=== PATIENT | male | born 1945 | race Caucasian/White ===

== ENCOUNTER → 2017-11-09 | Day surgery (SDC) | payer MEDICARE ==
--- NOTE | 2017-11-05 10:30 | RAD REPORT ---
EXAM DESCRIPTION: RAD - Chest Pa And Lat (2 Views) - 11/05/2017 10:21 am CLINICAL HISTORY: Coronary artery disease Chest pain. COMPARISON: CHEST PA AND LAT 2 VIEW dated 12/21/2013; Ct Low Dose Chest Screening dated 04/26/2017 FINDINGS: The lungs are emphysematous with linear scarring seen in the left lateral lower lobe. The heart is mildly prominent in size. No displaced fractures. IMPRESSION: COPD.
[2017-11-05 10:59] LABS: Absolute Lymphocytes (CBC) 1.3 K/uL (0.7-4.9); Absolute Monocytes 0.8 K/uL (0.1-1.3); Absolute Neutrophil 5.1 K/uL (1.8-8.0); Basophils % 1.3 % (0-1.3); Eosinophils % 2.9 % (0-4.4); Hematocrit 45.7 % (39.6-49.0); Lymphocytes % 17.8 % (15.3-44.8); MCH 32.3 pg (27.0-35.0); MCV 94.2 fL (80-100); MPV 8.5 fL (7.6-11.3); Monocytes % 10.2 % (3.3-12.3); RBC Red Blood Cell Count 4.85 M/uL (4.33-5.43)
[2017-11-05 11:03] LABS: Protime INR 1.06
[2017-11-05 11:05] LABS: Potassium 4.2 mmol/L (3.5-5.1)
--- NOTE | 2017-11-05 15:02 | EKG ---
Test Date: 2017-11-05 Test Time: 10:24:50 Fire Hydrant Mechanic: BRANDON MEASUREMENT RESULTS: Intervals: Rate: 64 DC: 186 QRSD: 100 QT: 450 QTc: 464 [place]: P: 22 DC: 186 QRS: -30 T: 27 INTERPRETIVE STATEMENTS: Normal sinus rhythm Left axis deviation Abnormal ECG Compared to ECG 11/30/2013 10:34:09 Left-axis deviation now present Electronically Signed On 11-05-17 15:01:47 CDT by Emmett Luciano
[~2017-11-09] MED LIST: FENTANYL CITR 100 MCG/2 ML ONE; HEPA 1000U/500MLS 1,000 UNIT/500 ML BAG IV ONE; LIDOCAINE 1% MPF 5 ML VIAL ONE; MIDAZOLAM HCL 2 MG/2 ML INJ ONE; NA CHLORIDE 0.9% 0 ML ONE; NA CHLORIDE 0.9% 500 ML ONE
[2017-11-09 09:50] VITALS: TEMP 97
[2017-11-09 12:14] VITALS: BP 141/65; O2SAT 94
--- NOTE | 2017-11-09 20:04 | OP ---
Surgeon: aCr Lomax MD Survey Researcher: Pearl Colón. Admitted to my service on 11/09/2017 as an outpatient for a heart catheterization. Procedures: Left heart catheterization. Selective coronary arteriogram. Indication: Coronary artery disease and unstable angina. Procedure In Detail: The patient was brought into the prosthetic lab technician as an outpatient, prepped and draped in the routine sterile fashion. He was given 2 mg of Versed for IV sedation. A 6-Portuguese sheath was introduced in the right common femoral artery. Angio-Seal was used to close the case. Coronary mirta ography using 6-Portuguese catheters. Jens showed a proximal patent LAD stent, proximal patent RCA st ent and distal patent RCA stent, diffuse plaquing in the distal RCA. Normal circumflex. No complica tion. Blood Loss: 5 cc. Total Conscious Sedation: 30 minutes. Postoperative Diagnoses: Moderate coronary artery disease. Patent right coronary artery and left an terior descending stent. Plan: Medical therapy. HEIDI/CHEYANNE Voice ID: [id number] Report ID: [id number]
== END ==
LOC: CCL 07:25
DX: I25.110 Atherosclerotic heart disease of native coronary artery with unstable angina pectoris (principal); I10 Essential (primary) hypertension; I48.91 Unspecified atrial fibrillation; E78.6 Lipoprotein deficiency; F17.210 Nicotine dependence, cigarettes, uncomplicated; Z95.5 Presence of coronary angioplasty implant and graft
CPT/HCPCS: 36415; 71046; 80048; 85025; 85610; 85730; 93005; 93454; C1760; C1893; J2250; J3010

== ENCOUNTER 2020-07-30 06:25 | Day surgery (SDC) | payer MEDICARE, OTHER ==
[2020-07-29 14:10] LABS: Absolute Lymphocytes (CBC) 1.5 K/uL (0.7-4.9); Basophils % 0.9 % (0-1.3); Hematocrit 50.6 % (39.6-49.0); Lymphocytes % 16.4 % (15.3-44.8); MPV 9.9 fL (7.6-11.3); RBC Red Blood Cell Count 5.38 M/uL (4.33-5.43)
[2020-07-29 16:02] LABS: Potassium 4.7 mmol/L (3.5-5.1)
[2020-07-29 16:07] LABS: Protime INR 1.98
[2020-07-30 07:09] VITALS: TEMP 96.6
[2020-07-30] MEDS ORDERED: NA CHLORIDE 0.9% 500 ML ONE (07:13)
[2020-07-30] MEDS ORDERED: MIDAZOLAM HCL 10 ML ONE (07:39)
[2020-07-30] MEDS ORDERED: ATROPINE SULF 1 MG/10 ML SYR IV ONE (07:40)
[2020-07-30] MEDS ORDERED: FLUMAZENIL 0.1 MG/ML (5 mL VIAL) IV ONE (07:40)
[2020-07-30 09:21] VITALS: BP 123/68; O2SAT 98
--- NOTE | 2020-07-31 16:32 | EKG ---
Test Date: 2020-07-30 Test Time: 06:48:06 Sys Dir: KILEY/Marjan MEASUREMENT RESULTS: Intervals: Rate: 74 OR: 248 QRSD: 102 QT: 446 QTc: 495 [place]: P: 48 OR: 248 QRS: -41 T: 4 INTERPRETIVE STATEMENTS: Sinus rhythm with 1st degree AV block Possible Left atrial enlargement Left axis deviation Inferior infarct, age undetermined Abnormal ECG Electronically Signed On 07-31-20 16:30:00 CDT by Car Lomax
--- NOTE | 2020-07-31 16:32 | EKG ---
Test Date: 2020-07-30 Test Time: 06:47:08 Manifold Operator: KILEY/Marjan MEASUREMENT RESULTS: Intervals: Rate: 74 MT: 208 QRSD: 100 QT: 446 QTc: 495 [place]: P: 43 MT: 208 QRS: -43 T: 2 INTERPRETIVE STATEMENTS: Normal sinus rhythm Possible Left atrial enlargement Left axis deviation Inferior infarct, age undetermined Abnormal ECG Compared to ECG 11/05/2017 10:24:50 Myocardial infarct finding now present Electronically Signed On 07-31-20 16:30:01 CDT by Car Lomax
--- NOTE | 2020-07-31 23:11 | OP ---
Date of Procedure: 07/30/2020 Surgeon: Car Lomax MD Director Occupational: Jackie Dyer. Procedure: Direct current cardioversion. Indication: Recurrent atrial fibrillation on flecainide and Xarelto. Ms. Sanches is 74, presented wit h history of atrial fibrillation, controlled in the past on flecainide, went back into atrial fibrill ation. Flecainide dose was increased. He continued to be in atrial fibrillation on Xarelto, symptom atic with it with fatigue and shortness of breath, brought to the crime laboratory analyst as an outpatient on 2020. He 7 mg of Versed IV push x1 dose. He received 1 shock of 100 joules and he converted to sinu s rhythm. There were no complications or blood loss. Final Diagnosis: Successful cardioversion from atrial fibrillation to sinus rhythm. Continue his flecainide and Xarelto. He can go home when he wakes up. See me in the office in 2 wee ks. Anesthesia: Total conscious sedation was 30 minutes. HEIDI/CHEYANNE Voice ID: [id number] Report ID: [id number]
== END 2020-07-30 09:15 | disposition home or self-care (01) ==
LOC: CCL 06:25
DX: I48.0 Paroxysmal atrial fibrillation (principal); I48.92 Unspecified atrial flutter; I10 Essential (primary) hypertension; E78.2 Mixed hyperlipidemia; I25.10 Atherosclerotic heart disease of native coronary artery without angina pectoris; I70.213 Atherosclerosis of native arteries of extremities with intermittent claudication, bilateral legs; M47.892 Other spondylosis, cervical region; G62.9 Polyneuropathy, unspecified; R09.89 Other specified symptoms and signs involving the circulatory and respiratory systems; E66.9 Obesity, unspecified; Z68.36 Body mass index [BMI] 36.0-36.9, adult; Z79.01 Long term (current) use of anticoagulants; Z87.891 Personal history of nicotine dependence
CPT/HCPCS: 93005 ×2; 85025; 80048; 36415; 85610; 85730; 92960; J2250; J7040

== ENCOUNTER 2020-09-30 12:58 | Inpatient (IN) | payer OTHER ==
[2020-09-30 14:48] LABS: Absolute Lymphocytes (CBC) 0.9 K/uL (0.7-4.9); Basophils % 0.8 % (0-1.3); Lymphocytes % 6.9 % (15.3-44.8); MPV 8.1 fL (7.6-11.3); RBC Red Blood Cell Count 4.81 M/uL (4.33-5.43)
[2020-09-30 15:00] LABS: Protime INR 1.52
[2020-09-30 15:10] LABS: ALT/SGPT 17 U/L (12-78); AST/SGOT 9 U/L (15-37); Albumin 3.6 g/dL (3.4-5.0); Alkaline Phosphatase 97 U/L (45-117); BUN Blood Urea Nitrogen 33 mg/dL (7-18); Bicarbonate 20 mmol/L (21-32); Bilirubin Direct 0.2 mg/dL (0-0.2); Bilirubin Total 0.8 mg/dL (0.2-1.0); Glucose Level 145 mg/dL (74-106); Magnesium 1.8 mg/dL (1.8-2.4); NT PRO-BNP 614 pg/mL (<450); Potassium 4.2 mmol/L (3.5-5.1); Protein, Total 7.3 g/dL (6.4-8.2); Sodium Level 136 mmol/L (136-145); Troponin (Emerg Dept Use Only) < 0.02 ng/mL (0.0-0.045)
[2020-09-30] MEDS ORDERED: NA CHLORIDE 0.9% 500 ML ONE (15:56)
[2020-09-30] MEDS ORDERED: FENTANYL CITR 100 MCG/2 ML ONE ×2 (16:18→20:51)
[2020-09-30 16:52] LABS: SARS-COV-2 RT PCR NEGATIVE (NEGATIVE)
[2020-09-30] MEDS ORDERED: DIAZEPAM 10 MG/2 ML INJ SYRINGE ONE (17:14)
--- NOTE | 2020-09-30 17:40 | EDPHYS ---
Physician Documentation [facility] Name: Louisa Sanches Age: 74 yrs Sex: Male : 1945 Arrival Date: 09/30/2020 Time: 12:59 Bed 20 Private MD: ED Physician Bridger Brock HPI: 09/30 16:56 This 74 yrs old Male presents to ER via Ambulatory with complaints of Chest jr8 Pain. 16:56 This is a 74-year-old gentleman that started with right-sided back pain chest pain and jr8 side pain. Stated that is worse with breathing. Denies recent trauma. Severity of symptoms: At their worst the symptoms were moderate in the emergency department the symptoms are unchanged. The patient has not experienced similar symptoms in the past. The patient has not recently seen a physician. Historical: - Allergies: 14:19 No Known Allergies; kg - Home Meds: 14:20 atorvastatin 40 mg Oral tab [Active]; Belsomra 15 mg oral tab 1 tab daily [Active]; kg pantoprazole 20 mg Oral TbEC [Active]; Xarelto 20 mg oral tab 1 tab once daily [Active]; montelukast 10 mg Oral tab 1 tab once daily [Active]; cyclobenzaprine 10 mg Oral tab 1 tab once daily [Active]; flecainide 150 mg Oral tab 1 tab every 12 hours [Active]; metoprolol tartrate 100 mg Oral tab 1 tab once daily [Active]; tramadol 50 mg Oral TbDi 50 mg [Active]; albuterol sulfate Inhl [Active]; spironolactone 25 mg Oral tab 1 tab once daily [Active]; Fish Oil 1,000 mg oral cap daily [Active]; - PMHx: 14:20 A-fib; COPD; High Cholesterol; Hypertension; kg - PSHx: 14:20 Cardiac stents; Cholecystectomy; kg - Immunization history:: Adult Immunizations up to date, Client reports receiving the 2nd dose of the Covid vaccine, Date received: April 29, 2020 [employer] Client reports receiving the 1st dose of the Covid vaccine, April 08, 2020 [employer]. - Social history:: Smoking status: Patient denies any tobacco usage or history of. ROS: 16:56 Eyes: Negative for injury, pain, redness, and discharge, ENT: Negative for injury, jr8 pain, and discharge, Neck: Negative for injury, pain, and swelling, Respiratory: Negative for shortness of breath, cough, wheezing, and pleuritic chest pain, MS/Extremity: Negative for injury and deformity, Skin: Negative for injury, rash, and discoloration, Neuro: Negative for headache, weakness, numbness, tingling, and seizure. 16:56 Cardiovascular: Positive for chest pain. 16:56 Abdomen/GI: Positive for abdominal pain. 16:56 Back: Positive for pain at rest. Exam: 16:56 ENT: Nares patent. No nasal discharge, no septal abnormalities noted. Tympanic jr8 membranes are normal and external auditory canals are clear. Oropharynx with no redness, swelling, or masses, exudates, or evidence of obstruction, uvula midline. Mucous membranes moist. Neck: Trachea midline, no thyromegaly or masses palpated, and no cervical lymphadenopathy. Supple, full range of motion without nuchal rigidity, or vertebral point tenderness. No Meningismus. Chest/axilla: Normal chest wall appearance and motion. Nontender with no deformity. No lesions are appreciated. Cardiovascular: Regular rate and rhythm with a normal S1 and S2. No gallops, murmurs, or rubs. Normal PMI, no JVD. No pulse deficits. Respiratory: Lungs have equal breath sounds bilaterally, clear to auscultation and percussion. No rales, rhonchi or wheezes noted. No increased work of breathing, no retractions or nasal flaring. Back: No spinal tenderness. No costovertebral tenderness. Full range of motion. Skin: Warm, dry with normal turgor. Normal color with no rashes, no lesions, and no evidence of cellulitis. MS/ Extremity: Pulses equal, no cyanosis. Neurovascular intact. Full, normal range of motion. Neuro: Awake and alert, GCS 15, oriented to person, place, time, and situation. Cranial nerves II-XII grossly intact. Motor strength 5/5 in all extremities. Sensory grossly intact. Cerebellar exam normal. Normal gait. 16:56 Constitutional: The patient appears alert, awake, uncomfortable. 16:56 Abdomen/GI: Inspection: abdomen appears normal, Bowel sounds: active, all quadrants, Palpation: soft, in all quadrants, mild abdominal tenderness, in the right upper quadrant and right lower quadrant, mass, is not appreciated, rebound tenderness, is not appreciated, voluntary guarding, is not appreciated, involuntary guarding, is not appreciated, no appreciated organomegaly, Indicators: McBurney's point is not tender, Vaz's sign is negative, Rovsing's sign is negative, Liver: tenderness, is not appreciated. Vital Signs: 14:14 BP 132 / 74; Pulse 81; Resp 28; Temp 97.7; Pulse Ox 97% on R/A; Weight 108.86 kg (R); kg Height 6 ft. 0 in. (182.88 cm); Pain 7/10; 17:19 BP 133 / 68; Pulse 74; Resp 23; Pulse Ox 90% on R/A; sv 18:15 BP 136 / 67; Pulse 70; Resp 16; Pulse Ox 92% on 2 lpm NC; sv 19:35 BP 134 / 73; Pulse 72; Resp 20; Temp 96.3; Pulse Ox 97% on 2 lpm NC; ch4 10/02 19:30 BP 142 / 75; Pulse 100; Resp 20; Temp 98.3; Pulse Ox 97% on NC; Pain 6/10; wg 09/30 14:14 Body Mass Index 32.55 (108.86 kg, 182.88 cm) kg 09/30 17:19 Pt placed on O2 \T\ 2L per NC. Informed Dave JARAMILLO MDM: 15:25 Patient medically screened. [facility] 17:36 Data reviewed: vital signs, nurses notes, lab test result(s), EKG, radiologic studies, [facility] CT scan, plain films. Data interpreted: Pulse oximetry: on room air is 90 %. Interpretation: normal. Counseling: I had a detailed discussion with the patient and/or guardian regarding: the historical points, exam findings, and any diagnostic results supporting the discharge/admit diagnosis, lab results, radiology results, the need for further work-up and treatment in the hospital. ED course: Patient was 90% room air. Patient has a right pleural effusion with most likely early infiltrate that would coincide with his oxygen saturation. Patient normally does not require any oxygen therapy at home. Pain still moderate in nature and had to be medicated multiple times. Will observe patient overnight to ensure that he remains stable.. 09/30 14:28 Order name: Basic Metabolic Panel kg 09/30 14: Order name: CBC with Diff kg 09/30 14:28 Order name: LFT's; Complete Time: 15:16 kg 09/30 14:28 Order name: Magnesium; Complete Time: 15:16 kg 09/30 14:28 Order name: NT PRO-BNP; Complete Time: 15:16 kg 09/30 14:28 Order name: PT-INR; Complete Time: 15:32 kg 09/30 14:28 Order name: Troponin (emerg Dept Use Only); Complete Time: 15:16 kg 09/30 14:28 Order name: Basic Metabolic Panel; Complete Time: 15:16 EDMS 09/30 14:28 Order name: CBC with Automated Diff; Complete Time: 15:16 EDMS 09/30 14:32 Order name: Flu kg 09/30 16:52 Order name: COVID-19/FLU A+B; Complete Time: 16:53 EDMS 10/01 03:03 Order name: CBC with Automated Diff; Complete Time: 07:58 EDMS 10/01 03:12 Order name: Comprehensive Metabolic Panel; Complete Time: 07:58 EDMS 10/01 03:12 Order name: Phosphorus; Complete Time: 07:58 EDMS 10/01 03:12 Order name: Magnesium; Complete Time: 07:58 EDMS 10/01 03:33 Order name: Hemoglobin A1c; Complete Time: 07:58 EDMS 10/01 07:42 Order name: Glucose, Ancillary Testing; Complete Time: 07:58 EDMS 10/01 12:06 Order name: Glucose, Ancillary Testing; Complete Time: 07:58 EDMS 10/01 17:03 Order name: Glucose, Ancillary Testing; Complete Time: 07:58 EDMS 10/01 20:33 Order name: Glucose, Ancillary Testing; Complete Time: 07:58 EDMS 10/01 22:13 Order name: Urinalysis; Complete Time: 07:58 EDMS 10/02 08:02 Order name: Glucose, Ancillary Testing; Complete Time: 07:58 EDMS 10/02 12:34 Order name: Glucose, Ancillary Testing; Complete Time: 07:58 EDMS 10/02 17:33 Order name: Glucose, Ancillary Testing; Complete Time: 07:58 EDMS 10/02 23:09 Order name: Glucose, Ancillary Testing; Complete Time: 07:58 EDMS 10/03 02:56 Order name: Basic Metabolic Panel; Complete Time: 07:58 EDMS 10/03 03:00 Order name: CBC with Automated Diff; Complete Time: 07:58 EDMS 10/03 03:34 Order name: Manual Differential; Complete Time: 07:58 EDMS 10/03 08:18 Order name: Glucose, Ancillary Testing; Complete Time: 07:58 EDMS 09/30 14:28 Order name: XRAY Chest (1 view); Complete Time: 07:58 kg 09/30 14:28 Order name: EKG; Complete Time: 14:28 kg 09/30 14:28 Order name: Cardiac monitoring; Complete Time: 17:34 kg 09/30 14:28 Order name: EKG - Nurse/Tech; Complete Time: 14:28 kg 09/30 14:28 Order name: IV Saline Lock; Complete Time: 14:28 kg 09/30 14:28 Order name: Labs collected and sent; Complete Time: 14:28 kg 09/30 14:28 Order name: O2 Per Protocol; Complete Time: 14:28 kg 09/30 14:28 Order name: O2 Sat Monitoring; Complete Time: 14:28 kg 09/30 15:17 Order name: CT Chest For PE Angio; Complete Time: 07:58 rn 09/30 16:36 Order name: CT Abd/Pelvis - Without Contrast; Complete Time: 07:58 jr8 10/03 11:48 Order name: Glucose, Ancillary Testing; Complete Time: 07:58 EDMS 10/03 16:49 Order name: Glucose, Ancillary Testing; Complete Time: 07:58 EDMS Administered Medications: 15:40 Drug: NS 0.9% 500 ml Route: IV; Rate: bolus; Site: right antecubital; ss 16:58 Follow up: Response: No adverse reaction; IV Status: Completed infusion; IV Intake: sv 500ml 15:58 Drug: fentaNYL (PF) 50 mcg Route: IVP; Site: right antecubital; ss 17:26 Follow up: Response: No adverse reaction; No change in condition sv 16:49 Drug: fentaNYL (PF) 50 mcg Route: IVP; Site: right antecubital; sv 16:58 Follow up: Response: No adverse reaction; No change in condition; RASS: Restless (+1) sv 16:53 Drug: Valium (diazepam) 2 mg Route: IVP; Site: right antecubital; sv 17:26 Follow up: Response: No adverse reaction sv 17:26 Drug: Dilaudid (HYDROmorphone) 1 mg {Note: rass3.} Route: IVP; Site: right antecubital; sv 18:30 Follow up: Response: No adverse reaction; No change in condition; RASS: Agitated (+2) sv 18:30 Drug: Zithromax (azithromycin) 500 mg Route: IVPB; Infused Over: 1 hrs; Site: right sv antecubital; 19:36 Follow up: IV Status: Completed infusion; IV Intake: 250ml ch4 20:29 Drug: fentaNYL (PF) 25 mcg Route: IVP; Site: right antecubital; ch4 Disposition: 10/03 18:57 Co-signature as Attending Physician, Bridger Brock MD I agree with the assessment and rn plan of care. Attestation: The patient's history, exam findings, diagnostics, and a summary of any interventions or procedures was reviewed in detail with Dave LU. Disposition Summary: 09/30/20 17:39 Hospitalization Ordered Hospitalization Status: Observation 8 Provider: Shonda Haas jr Condition: Fair jr8 Problem: new jr8 Symptoms: have improved jr8 Bed/Room Type: Standard [facility] Location: Telemetry/MedSurg (observation)(10/03/20 17:25) Room Assignment: [facility](10/03/20 17:25) Diagnosis - Chest pain on breathing jr8 - Pleurisy jr8 - Pleural effusion, not elsewhere classified jr8 - Unspecified bacterial pneumonia jr8 Forms: - Medication Reconciliation Form jr8 - SBAR form jr8 Signatures: Dispatcher [employer] EDOK Jasmyne Chand RN Maura Velazquez RN RN Bridger Brock MD MD rn Smirch, Shelby, RN RN ss Roszak, Josh, PA PA [facility] Yana Dyer, RN ALEX Joanna Dobbs RN RN Cristal Núñez RN RN ch4 Corrections: (The following items were deleted from the chart) 09/30 16:12 14:35 CORONAVIRUS+MR.LAB.BRZ ordered. EDOK EDOK 22:36 17:39 Telemetry/MedSurg (observation) jr8 22:36 17:39 jr8 cg 10/03 22:36 BR ER HOLD cg dw 10/03 22:36 ERHOLD- cg dw
--- NOTE | 2020-09-30 17:40 | ER ---
Nurse's Notes [facility] Name: Louisa Sanches Age: 74 yrs Sex: Male : 1945 Arrival Date: 09/30/2020 Time: 12:59 Bed 20 Private MD: Diagnosis: Chest pain on breathing;Pleurisy;Pleural effusion, not elsewhere classified;Unspecified bacterial pneumonia Presentation: 09/30 14:14 Chief complaint: Patient states: Pt stated, " I can't breath in, real bad pain when I kg breath all the way through, mainly on my right side." started at 11:00. SOB, Cough, vomiting, dizziness. x 3 days ago. Coronavirus screen: Client denies travel out of the [place] in the last 14 days. At this time, unable to obtain information related to travel outside the [place] Client presents with at least one sign or symptom that may indicate coronavirus-19. Standard/surgical mask placed on the client. Provider contacted for isolation considerations. Ebola Screen: Patient negative for fever greater than or equal to 101.5 degrees Fahrenheit, and additional compatible Ebola Virus Disease symptoms Patient denies exposure to infectious person. Patient denies travel to an Ebola-affected area in the 21 days before illness onset. Initial Sepsis Screen: Does the patient meet any 2 criteria? No. Patient's initial sepsis screen is negative. Does the patient have a suspected source of infection? No. Patient's initial sepsis screen is negative. Risk Assessment: Do you want to hurt yourself or someone else? Patient reports no desire to harm self or others. Onset of symptoms was September 27, 2020. 14:14 Method Of Arrival: Ambulatory kg 14:14 Acuity: MARIBETH 3 kg Triage Assessment: 14:20 General: Appears in no apparent distress. Behavior is calm, cooperative, appropriate kg for age, quiet. Pain: Complains of pain in anterior aspect of right upper chest and right breast Pain radiates to back Pain currently is 8 out of 10 on a pain scale. at worst was 10 out of 10 on a pain scale. Cardiovascular: Reports chest pain, nausea, shortness of breath. Historical: - Allergies: 14:19 No Known Allergies; kg - Home Meds: 14:20 atorvastatin 40 mg Oral tab [Active]; Belsomra 15 mg oral tab 1 tab daily [Active]; kg pantoprazole 20 mg Oral TbEC [Active]; Xarelto 20 mg oral tab 1 tab once daily [Active]; montelukast 10 mg Oral tab 1 tab once daily [Active]; cyclobenzaprine 10 mg Oral tab 1 tab once daily [Active]; flecainide 150 mg Oral tab 1 tab every 12 hours [Active]; metoprolol tartrate 100 mg Oral tab 1 tab once daily [Active]; tramadol 50 mg Oral TbDi 50 mg [Active]; albuterol sulfate Inhl [Active]; spironolactone 25 mg Oral tab 1 tab once daily [Active]; Fish Oil 1,000 mg oral cap daily [Active]; - PMHx: 14:20 A-fib; COPD; High Cholesterol; Hypertension; kg - PSHx: 14:20 Cardiac stents; Cholecystectomy; kg - Immunization history:: Adult Immunizations up to date, Client reports receiving the 2nd dose of the Covid vaccine, Date received: April 29, 2020 [employer] Client reports receiving the 1st dose of the Covid vaccine, April 08, 2020 [employer]. - Social history:: Smoking status: Patient denies any tobacco usage or history of. Screenin:26 Abuse screen: Denies threats or abuse. Denies injuries from another. Nutritional kg screening: No deficits noted. Tuberculosis screening: No symptoms or risk factors identified. Fall Risk None identified. Assessment: 15:42 Reassessment: Pt to CT now VIA wheelchair. ss 17:24 General: Appears in no apparent distress. uncomfortable, well developed, Behavior is sv calm, cooperative, appropriate for age. Pain: Complains of pain in chest Pain currently is 7 out of 10 on a pain scale. Pain began 2-3 days ago. Is continuous. Pain: Quality of pain is described as sharp, Also complains of shortness of breath. Neuro: Level of Consciousness is awake, alert, obeys commands, Oriented to person, place, time, situation, Moves all extremities. Full function Gait is steady, Speech is normal. Cardiovascular: Patient's skin is warm and dry. Rhythm is sinus rhythm. Respiratory: Airway is patent Respiratory effort is even, unlabored, Respiratory pattern is symmetrical, tachypnea. Derm: Skin is pink, warm \\T\\ dry. Musculoskeletal: Range of motion: intact in all extremities. 18:30 Reassessment: Patient appears in no apparent distress at this time. No changes from previously documented assessment. Patient and/or family updated on plan of care and expected duration. Pain level reassessed. Patient is alert, oriented x 3, equal unlabored respirations, skin warm/dry/pink. 19:36 Pain: Complains of pain in chest and abdomen Pain radiates to chest and abdomen Pain at ch4 worst was 10 out of 10 on a pain scale. Alleviated by nothing. Aggravated by exercise, increased activity, repositioning, BREATHING, LYING FLAT. Vital Signs: 14:14 BP 132 / 74; Pulse 81; Resp 28; Temp 97.7; Pulse Ox 97% on R/A; Weight 108.86 kg (R); kg Height 6 ft. 0 in. (182.88 cm); Pain 7/10; 17:19 BP 133 / 68; Pulse 74; Resp 23; Pulse Ox 90% on R/A; sv 18:15 BP 136 / 67; Pulse 70; Resp 16; Pulse Ox 92% on 2 lpm NC; sv 19:35 BP 134 / 73; Pulse 72; Resp 20; Temp 96.3; Pulse Ox 97% on 2 lpm NC; ch4 10/02 19:30 BP 142 / 75; Pulse 100; Resp 20; Temp 98.3; Pulse Ox 97% on NC; Pain 6/10; wg 09/30 14:14 Body Mass Index 32.55 (108.86 kg, 182.88 cm) kg 09/30 17:19 Pt placed on O2 \\T\\ 2L per NC. Informed Dave LU. ED Course: 12:59 Patient arrived in ED. ds1 14:19 Triage completed. kg 14:20 Arm band placed on left wrist. kg 14:26 Patient has correct armband on for positive identification. kg 14:27 Patient maintains SpO2 saturation greater than 95% on room air. kg 14:28 Inserted saline lock: 20 gauge in right antecubital area, using aseptic technique. kg ,using aseptic technique. [employer] Blood collected. 15:20 XRAY Chest (1 view) In Process Unspecified. EDMS 15:25 Dave Forman PA is PHCP. jr8 15:25 Bridger Brock MD is Attending Physician. jr8 15:40 Rosina Virk RN is Primary Nurse. ss 16:13 CT Chest For PE Angio In Process Unspecified. EDMS 16:[address] via wheelchair. sv 16:59 Report received from Rosina JOHNSON. sv 17:08 CT Abd/Pelvis - Without Contrast In Process Unspecified. EDMS 17:32 Primary Nurse role handed off by Rosina Virk RN sv 17:32 Jasmyne Chand, RN is Primary Nurse. sv 17:34 Basic Metabolic Panel Sent. sv 17:34 CBC with Diff Sent. sv 17:39 Shonda Haas MD is Hospitalizing Provider. jr8 19:18 Primary Nurse role handed off by Jasmyne Chand, ALEX sv 19:35 Cristal Núñez, ALEX is Primary Nurse. ch4 Administered Medications: 15:40 Drug: NS 0.9% 500 ml Route: IV; Rate: bolus; Site: right antecubital; ss 16:58 Follow up: Response: No adverse reaction; IV Status: Completed infusion; IV Intake: sv 500ml 15:58 Drug: fentaNYL (PF) 50 mcg Route: IVP; Site: right antecubital; ss 17:26 Follow up: Response: No adverse reaction; No change in condition sv 16:49 Drug: fentaNYL (PF) 50 mcg Route: IVP; Site: right antecubital; sv 16:58 Follow up: Response: No adverse reaction; No change in condition; RASS: Restless (+1) sv 16:53 Drug: Valium (diazepam) 2 mg Route: IVP; Site: right antecubital; sv 17:26 Follow up: Response: No adverse reaction sv 17:26 Drug: Dilaudid (HYDROmorphone) 1 mg {Note: rass3.} Route: IVP; Site: right antecubital; sv 18:30 Follow up: Response: No adverse reaction; No change in condition; RASS: Agitated (+2) sv 18:30 Drug: Zithromax (azithromycin) 500 mg Route: IVPB; Infused Over: 1 hrs; Site: right sv antecubital; 19:36 Follow up: IV Status: Completed infusion; IV Intake: 250ml ch4 20:29 Drug: fentaNYL (PF) 25 mcg Route: IVP; Site: right antecubital; ch4 Intake: 16:58 IV: 500ml; Total: 500ml. sv 19:36 IV: 250ml; Total: 750ml. ch4 Outcome: 17:39 Decision to Hospitalize by Provider. jr8 10/03 18:21 Patient left the ED. ap3 Signatures: Dispatcher [employer] Jasmyne Mccullough, RN RN Mazai ds1 Rosina Virk RN RN Dave Forman PA PA jr8 Fariba Carter RN RN ap3 Joanna Dobbs RN RN Cristal Núñez RN RN [facility] Corrections: (The following items were deleted from the chart) 09/30 17:32 17:19 BP 133 / 68; Pulse 74bpm; Resp 23bpm; Pulse Ox 91% RA; sv sv 17:35 17:19 BP 133 / 68; Pulse 74bpm; Resp 23bpm; Pulse Ox 91% RA; Pt placed on O2 \\T\\ 2L per sv NC. Informed Dave LU.; sv
[2020-09-30] MEDS ORDERED: HYDROMORPHONE HCL 1 MG/ML INJ ONE (17:42)
[2020-09-30] MEDS ORDERED: AZITHROMYCIN IV 500 MG in NA CHLORIDE 0.9% 250 ML IVPB ONE (18:00)
[2020-10-01] MEDS ORDERED: ALBUTEROL 2.5 MG/3 ML NEB SOL NEB PRN ×2 (00:41→15:00)
[2020-10-01] MEDS ORDERED: ONDANSETRON 4 MG/2 ML VIAL IV PRN (00:41)
[2020-10-01] MEDS ORDERED: D50W 25 GM/50 ML SYRINGE IV PRN (00:41)
[2020-10-01] MEDS ORDERED: Levofloxacin 750mg IV 750 MG/150 ML BAG IV SCH ×2 (00:41→01:00)
[2020-10-01] MEDS ORDERED: ACETAMINOPHEN 500 MG TAB PO PRN (00:41)
[2020-10-01] MEDS ORDERED: GLUCAGON 1 MG/VIAL IM PRN (00:41)
[2020-10-01] MEDS: HYDROCODONE/APAP 5/325 MG TAB PO PRN ×4 (00:48→20:38)
[2020-10-01] MEDS ORDERED: Levofloxacin 750mg IV 750 MG/150 ML BAG IV ONE ×3 (01:11→04:10)
[2020-10-01] MEDS ORDERED: HYDROCODONE/APAP 5/325 MG TAB ONE ×4 (01:11→20:58)
[2020-10-01] MEDS: HYDROMORPHONE HCL 0.5 MG/0.5 ML INJ IV PRN ×3 (01:45→12:00)
[2020-10-01] MEDS ORDERED: HYDROMORPHONE HCL 0.5 MG/0.5 ML INJ ONE ×2 (02:08→06:37)
[2020-10-01] MEDS: IPRATROPIUM BROM 0.5MG/2.5ML NEB SCH ×4 (02:15→20:00)
[2020-10-01] MEDS ORDERED: IPRATROPIUM BROM 0.5MG/2.5ML ONE ×3 (02:33→15:37)
[2020-10-01 02:56] LABS: Basophils % 0.4 % (0-1.3); Hematocrit 43.2 % (39.6-49.0); Lymphocytes % 7.7 % (15.3-44.8); MPV 8.2 fL (7.6-11.3); RBC Red Blood Cell Count 4.61 M/uL (4.33-5.43)
[2020-10-01 03:12] LABS: Bilirubin Total 0.5 mg/dL (0.2-1.0); Magnesium 1.9 mg/dL (1.8-2.4); Phosphorus 2.9 mg/dL (2.5-4.9); Potassium 4.2 mmol/L (3.5-5.1); Protein, Total 6.3 g/dL (6.4-8.2)
--- NOTE | 2020-10-01 03:12 | P.HP ---
Certification for Inpatient Patient admitted to: Observation With expected LOS: <2 Midnights Patient will require the following post-hospital care: None Practitioner: I am a practitioner with admitting privileges, knowledge of patient current condition, hospital course, and medical plan of care. Services: Services provided to patient in accordance with Admission requirements found in Title 42 Section 412.3 of the Code of Federal Regulations Patient History Date of Service: 09/30/20 Reason for admission: pleural effusion History of Present Illness: Mr. Sanches is a 74 yo M with COPD, HLD, HTN, h/o afib who presents with pain down his whole right side beginning at noon today. He says this has never happened before. Pain is worse with movement and deep breaths. Reports cough. Denies fever. [place]. He said he was dizzy, had an episode of nausea and vomiting and wasn't able to drive himself home. WBC 12.7. Glu 145. BNP 614. CT scan showed R base pleural effusion with early infiltrate. Allergies No Known Allergies Allergy (Verified 07/29/20 13:58) Home Medications: Atorvastatin Calcium [Lipitor] 40 mg PO BEDTIME 01/29/16 Clopidogrel Bisulfate [Plavix*] 75 mg PO DAILY 01/29/16 Flecainide [Tambocor*] 150 mg PO DAILY 01/29/16 Fluticasone/Vilanterol [Breo Ellipta 100-25 Mcg INH] 1 each IH DAILY 01/29/16 Montelukast [Singulair*] 10 mg PO BEDTIME 01/29/16 Nitroglycerin [Nitrostat*] 0.4 mg SL PRN PRN 01/29/16 Pantoprazole [Protonix Tab*] 40 mg PO DAILY 01/29/16 atenoloL [Atenolol] 100 mg PO DAILY 01/29/16 - Past Medical/Surgical History Has patient received pneumonia vaccine in the past: Yes Diabetic: No -: HTN -: Hyperlipidemia -: COPD -: afib -: Monie -: Heart stent x3 - Family History Mother -: Heart disease Father -: Cancer Notes: Ca Lung - Social History Smoking Status: Unknown if ever smoked Alcohol use: No CD- Drugs: No Caffeine use: Yes Place of Residence: Home Review of Systems 10-point ROS is otherwise unremarkable Respiratory: Cough, Pleuritic Pain Gastrointestinal: Nausea, Vomiting Musculoskeletal: Back Pain Physical Examination - Vital Signs Temperature: 96.9 F Blood Pressure: 144/64 Pulse: 73 Respirations: 24 Pulse Ox (%): 93 - Physical Exam General: Alert, In no apparent distress HEENT: Atraumatic, PERRLA, Mucous membr. moist/pink, EOMI, Sclerae nonicteric Neck: Supple, 2+ carotid pulse no bruit, No LAD, Without JVD or thyroid abnormality Respiratory: Normal air movement, Diminished, Crackles/rales Cardiovascular: Regular rate/rhythm, Normal S1 S2 Gastrointestinal: Normal bowel sounds, No tenderness Musculoskeletal: No tenderness Integumentary: No rashes Neurological: Normal speech, Normal strength at 5/5 x4 extr, Normal tone, Normal affect Lymphatics: No axilla or inguinal lymphadenopathy - Studies Laboratory Data (last 24 hrs) 09/30/20 14:31: PT 17.6 H, INR 1.52 09/30/20 14:31: WBC 12.70 H, Hgb 15.3, Hct 45.0, Plt Count 256 09/30/20 14:31: Sodium 136, Potassium 4.2, BUN 33 H, Creatinine 1.54 H, Glucose 145 H, Magnesium 1.8, Total Bilirubin 0.8, AST 9 L, ALT 17, Alkaline Phosphatase 97 Assessment and Plan - Problems (Diagnosis) (1) COPD (chronic obstructive pulmonary disease) Current Visit: Yes Status: Chronic Qualifiers: COPD type: unspecified COPD Qualified Code(s): J44.9 - Chronic obstructive pulmonary disease, unspecified (2) HLD (hyperlipidemia) Current Visit: Yes Status: Chronic Qualifiers: Hyperlipidemia type: unspecified Qualified Code(s): E78.5 - Hyperlipidemia, unspecified (3) HTN (hypertension) Current Visit: Yes Status: Chronic Qualifiers: Hypertension type: primary hypertension Qualified Code(s): I10 - Essential (primary) hypertension (4) Pleural effusion Current Visit: Yes Status: Acute (5) Pneumonia Current Visit: Yes Status: Acute Qualifiers: Pneumonia type: due to unspecified organism Laterality: right Lung location: lower lobe of lung Qualified Code(s): J18.9 - Pneumonia, unspecified organism - Plan pulm consulted continue IV antibiotics, breathing treatments, O2 as needed pain management as needed sliding scale insulin and accuchecks reconcile and continue home medications - atirvastatin, xarelto, flecainide, metoprolol, spironolactone DVT ppx Discharge Plan: Home Plan to discharge in: 24 Hours - Advance Directives Does patient have a Living Will: Yes Does patient have a Durable POA for Healthcare: Yes - Code Status/Comfort Care Code Status Assessed: Yes (full code ) Critical Care: No Time Spent Managing Pts Care (In Minutes): 70
[2020-10-01] MEDS: INSULIN -REGULAR HUMAN 50 UNIT/0.5 ML ML SQ SCH ×4 (07:30→20:37)
--- NOTE | 2020-10-01 07:38 | EKG ---
Test Date: 2020-09-30 Test Time: 14:19:32 Construction Equipment Technician: ARMIDA MEASUREMENT RESULTS: Intervals: Rate: 76 AL: 188 QRSD: 102 QT: 420 QTc: 472 Unity: P: 49 AL: 188 QRS: -32 T: 37 INTERPRETIVE STATEMENTS: Normal sinus rhythm Left axis deviation Abnormal ECG Compared to ECG 07/30/2020 06:48:06 First degree AV block no longer present Myocardial infarct finding no longer present Electronically Signed On 10-01-20 07:36:23 CDT by Car Lomax
[2020-10-01] MEDS: ENOXAPARIN 40 MG/0.4 ML SQ SCH (08:31)
[2020-10-01] MEDS ORDERED: ENOXAPARIN 40 MG/0.4 ML SQ ONE (08:33)
[2020-10-01] MEDS ORDERED: ALBUTEROL 2.5 MG/3 ML NEB SOL ONE ×2 (08:41→15:37)
[2020-10-01] MEDS ORDERED: FUROSEMIDE 40 MG/4 ML VIAL IV SCH (09:00)
--- NOTE | 2020-10-01 09:23 | RAD REPORT ---
EXAM DESCRIPTION: RAD - Chest Single View - 09/30/2020 10:38 pm CLINICAL HISTORY: CHEST PAIN Prolonged technical malfunction delayed final written report. COMPARISON: April 2020 TECHNIQUE: AP portable chest image was obtained 09/30/2020 10:38 pm . FINDINGS: Chronic fibrotic stranding is present in the mid and lower left lung field. Additional charlie ear stranding has developed at the left hemidiaphragm that is likely atelectasis. Small right pleural effusion has developed since prior imaging. There is parenchymal stranding at the right base. Senior Sql Server Developer ior gutter assessment is limited. Upper lung whyte are clear. Heart and vasculature are normal. No pneumothorax. No acute bony abnormality seen. No acute aortic f indings suspected. IMPRESSION: New right pleural effusion with infiltrate and/ or atelectasis at the right base. Left base stranding is probably atelectasis.
--- NOTE | 2020-10-01 09:27 | RAD REPORT ---
EXAM DESCRIPTION: CT - Chest For Pe Angio - 09/30/2020 10:39 pm CLINICAL HISTORY: CHEST PAIN Prolonged technical malfunction delayed final written report. Findings were telephoned to the referri clinician via cell phone at the time of the study and again later in the evening to [facility]. Comparison imaging was not available at the time of the verbal report. COMPARISON: Lung Cancer Screening CT W/O dated 04/17/2020 TECHNIQUE: Dynamically enhanced 3 mm thick images of the chest were obtained during administration o f approximately 150mL Isovue 370 IV contrast. Coronal and oblique MIP reconstruction images were gene rated and reviewed. Exam utilizes a protocol to evaluate the pulmonary arterial tree. All CT scans are performed using dose optimization technique as appropriate and may include automated exposure control or mA/KV adjustment according to patient size. FINDINGS: No pulmonary emboli are identified. The aorta as imaged shows no acute or suspicious finding. No pericardial thickening or effusion. Minimal left lung base stranding is probably atelectasis. Exam has significant motion in the lung bas e region. There is a small to moderate right-sided pleural effusion which may be partially loculated at the base. There is right base lung parenchymal atelectasis change. Patchy lung parenchymal opacifi cation could be some superimposed pneumonia and needs correlation with clinical presentation. No mediastinal or hilar suspicious masses. No chest wall masses or abnormal axillary lymphadenopathy. IMPRESSION: No pulmonary emboli identified. Small to moderate right-sided pleural effusion with a questionable loculated component at the base. There is right lower lobe atelectasis with questionable superimposed infiltrate. This needs correlati on with clinical presentation.
--- NOTE | 2020-10-01 09:33 | RAD REPORT ---
EXAM DESCRIPTION: CT - Abdomen Pelvis Wo Contrast - 09/30/2020 10:39 pm CLINICAL HISTORY: ABD PAIN lower chest and abdomen out of proportion to exam findings and CT chest f indings. Prolonged technical malfunctions delayed final written report. Verbal report was telephoned to the re ferring clinician at the time of the study is well is later to the hospitalist service. Prior CT stud ies were not available at the time of the initial verbal report. COMPARISON: Abdomen Pelvis W Contrast dated 02/03/2016; Chest For Pe Angio dated 09/30/2020 TECHNIQUE: Axial [address] imaging of the abdomen and pelvis was performed without IV contrast. Patient had received IV contrast for the CT chest PE study shortly before this examination. No oral contrast was administered. All CT scans are performed using dose optimization technique as appropriate and may include automated exposure control or mA/KV adjustment according to patient size. FINDINGS: Patient has right base small to moderate pleural effusion with some question of loculation . No air in the pleural fluid. Empyema is unlikely but not excluded. There is lung parenchymal opacif ication that could be atelectasis, pneumonia or a combination. There was no pulmonary embolic disease in the right lower lung field and pulmonary hemorrhage therefore is not suspected. Multiple old rib fractures are seen in the posterior lower right chest. No acute rib finding. There i s extensive disc and endplate degenerative change throughout the thoracic and lumbar spine. No acute or pathologic bone process identifiable. The liver, spleen and pancreas show no suspicious findings on non-contrast imaging. Gallbladder is ab sent. No biliary tree dilatation. No hydronephrosis or suspicious renal mass. No significant adrenal finding. Isodense renal masses an d pyelonephritis cannot be excluded in the absence of IV contrast. The urinary bladder is without sig nificant finding. Contrast is present in the ureters and bladder from earlier CT chest study. No dilated bowel loops or bowel wall thickening. No free air, free fluid or inflammatory stranding. No mass or bulky lymphadenopathy. Small fat filled inguinal hernias are present. No suspicious bony findings. IMPRESSION: Non-contrast enhanced CT abdomen and pelvis imaging show no acute or emergent finding. N o abnormality seen that would explain the patient's significant lower chest or upper abdomen pain pat tern. Patient does have a small to moderate right pleural effusion with questionable loculated component. T here is atelectasis, infiltrate or a combination in the right lower lobe. Right base findings can be monitored. No convincing evidence for empyema or hemorrhage at this time.
[2020-10-01] MEDS: predniSONE 10 MG TAB PO SCH ×2 (12:03→20:37)
--- NOTE | 2020-10-01 12:03 | P.CNS ---
Date of Consult: 10/01/20 Chief Complaint: pleural effusion History of Present Illness: Patient is 74 years of age well-known to me with a history of COPD atrial fibrillation complaining of pain in the right side of the chest pleuritic chest pain ports some cough denies any fever that he was feeling little dizzy Patient has a minimal right-sided effusion Allergies No Known Allergies Allergy (Verified 07/29/20 13:58) Home Medications: Atorvastatin Calcium [Lipitor] 40 mg PO BEDTIME 01/29/16 Clopidogrel Bisulfate [Plavix*] 75 mg PO DAILY 01/29/16 Flecainide [Tambocor*] 150 mg PO DAILY 01/29/16 Fluticasone/Vilanterol [Breo Ellipta 100-25 Mcg INH] 1 each IH DAILY 01/29/16 Montelukast [Singulair*] 10 mg PO BEDTIME 01/29/16 Nitroglycerin [Nitrostat*] 0.4 mg SL PRN PRN 01/29/16 Pantoprazole [Protonix Tab*] 40 mg PO DAILY 01/29/16 atenoloL [Atenolol] 100 mg PO DAILY 01/29/16 - Past Medical/Surgical History Diabetic: No -: HTN -: Hyperlipidemia -: COPD -: afib -: Monie -: Heart stent x3 - Family History Mother Medical History: Heart disease Father Medical History: Cancer Notes: Ca Lung - Social History Alcohol use: No CD- Drugs: No Caffeine use: Yes Place of Residence: Home Review of Systems General: Weakness Respiratory: Shortness of Breath Physical Examination Temp Pulse Resp BP Pulse Ox 97.1 F 79 30 H 130/67 93 10/01/20 07:37 10/01/20 07:37 10/01/20 07:37 10/01/20 07:37 10/01/20 07:37 General: Alert, In no apparent distress, Oriented x3 Respiratory: Clear to auscultation bilaterally, Diminished Laboratory Data (last 24 hrs) 09/30/20 14:31: PT 17.6 H, INR 1.52 09/30/20 14:31: WBC 12.70 H, Hgb 15.3, Hct 45.0, Plt Count 256 09/30/20 14:31: Sodium 136, Potassium 4.2, BUN 33 H, Creatinine 1.54 H, Glucose 145 H, Magnesium 1.8, Total Bilirubin 0.8, AST 9 L, ALT 17, Alkaline Phosphatase 97 - Problems (1) Pleural effusion Current Visit: Yes Status: Acute Plan: Patient is 74 years of age with a history of COPD admitted with right-sided pleuritic chest pain minimal pleural effusion on the right side not apparent on the x-ray only on the CT scan vital signs are stable renal function is improving mildly elevated white count will verify patient is on oxygen plan to discharge thoracentesis not indicated no pulmonary embolism discharged on levofloxacin and steroids
--- NOTE | 2020-10-01 14:33 | P.PN ---
Date of Service: 10/01/20 Patient seen and examined. Is complain of significant right pleuritic chest pain. He reports prior history of multiple rib fractures in that region of his chest. Currently maintained on 3 L oxygen by nasal cannula. COVID negative. Suspect bacterial pneumonia with atelectasis and pleural effusion. Pain management with IV hydromorphone, gabapentin. 24 out pain management with Toradol. Titrate oxygen. Monitor CBC to follow leukocytosis.
[2020-10-01] MEDS: KETOROLAC 30 MG/ML INJ IV PRN (14:38)
[2020-10-01] MEDS ORDERED: predniSONE 10 MG TAB ONE ×2 (14:56→20:58)
[2020-10-01] MEDS ORDERED: KETOROLAC 30 MG/ML INJ ONE (14:56)
[2020-10-01] MEDS: HYDROMORPHONE HCL 1 MG/ML INJ IV PRN ×2 (15:09→18:57)
[2020-10-01] MEDS ORDERED: HYDROMORPHONE HCL 1 MG/ML INJ ONE ×2 (15:32→19:12)
[2020-10-01] MEDS: GABAPENTIN 100 MG CAP PO SCH (21:05)
[2020-10-01 21:58] LABS: Urine Appearance CLEAR (Clear); Urine Blood NEGATIVE (Negative); Urine Color DK YELLOW (Yellow); Urine Glucose NEGATIVE (Negative); Urine Protein NEGATIVE (Negative); Urine Specific Gravity 1.025 (1.005-1.030); Urine pH 5.5 (5.0-7.0)
[2020-10-01 22:12] LABS: Urine Bilirubin NEGATIVE (Negative); Urine Microscopic Reflex NO UMIC
[2020-10-02] MEDS ORDERED: LEVALBUTEROL 0.63 MG/3 ML NEB ONE (01:56)
[2020-10-02] MEDS: IPRATROPIUM BROM 0.5MG/2.5ML NEB SCH ×4 (02:00→20:41)
[2020-10-02] MEDS ORDERED: IPRATROPIUM BROM 0.5MG/2.5ML ONE ×4 (02:02→21:02)
[2020-10-02] MEDS: HYDROMORPHONE HCL 1 MG/ML INJ IV PRN ×2 (02:13→23:29)
[2020-10-02] MEDS ORDERED: HYDROMORPHONE HCL 1 MG/ML INJ ONE ×3 (02:29→23:51)
[2020-10-02] MEDS: KETOROLAC 30 MG/ML INJ IV PRN (06:31)
[2020-10-02] MEDS ORDERED: KETOROLAC 30 MG/ML INJ ONE (06:53)
[2020-10-02] MEDS: INSULIN -REGULAR HUMAN 50 UNIT/0.5 ML ML SQ SCH ×4 (07:30→21:00)
[2020-10-02] MEDS ORDERED: INSULIN -REGULAR HUMAN 50 UNIT/0.5 ML ML ONE ×2 (08:44→17:51)
[2020-10-02] MEDS ORDERED: levoFLOXacin 500 MG TAB ONE (08:45)
[2020-10-02] MEDS ORDERED: ENOXAPARIN 40 MG/0.4 ML SQ ONE (08:46)
[2020-10-02] MEDS ORDERED: Levofloxacin 750mg IV 750 MG/150 ML BAG IV SCH (09:00)
[2020-10-02] MEDS: predniSONE 10 MG TAB PO SCH ×2 (09:00→21:00)
[2020-10-02] MEDS: levoFLOXacin 500 MG TAB PO SCH (09:00)
[2020-10-02] MEDS: ENOXAPARIN 40 MG/0.4 ML SQ SCH (09:00)
[2020-10-02] MEDS: GABAPENTIN 100 MG CAP PO SCH ×3 (09:00→21:00)
[2020-10-02] MEDS ORDERED: predniSONE 10 MG TAB ONE (09:01)
[2020-10-02] MEDS ORDERED: BENZONATATE 100 MG CAP PO ONE (09:32)
[2020-10-02 12:17] VITALS: BMI 32.5
--- NOTE | 2020-10-02 17:05 | P.PN ---
Subjective Date of Service: 10/02/20 Chief Complaint: pleural effusion Patient states he feels much better. States he is breathing better and his chest pain is well controlled. He is currently on 3 L oxygen by nasal canula. Physical Examination - Vital Signs Temperature: 97.5 F Blood Pressure: 139/70 Pulse: 81 Respirations: 21 Pulse Ox (%): 93 - Physical Exam General: Alert, In no apparent distress, Oriented x3 Neck: JVD not distended Respiratory: Clear to auscultation bilaterally Cardiovascular: Regular rate/rhythm, Normal S1 S2 Gastrointestinal: Soft and benign, Non-distended Musculoskeletal: No swelling Integumentary: No rashes Neurological: Normal strength at 5/5 x4 extr Assessment And Plan - Plan Currently maintained on 3 L oxygen by nasal cannula. COVID negative. Suspect bacterial pneumonia with atelectasis and pleural effusion. Pain management with IV hydromorphone, gabapentin. Continue antibiotics. Continue bronchodilators Pulmonary input appreciated. Patient started on prednisone Possible baseline chronic respiratory failure with hypoxia. Wean oxygen as tolerated. Incentive spirometry.
[2020-10-02] MEDS: HYDROCODONE/APAP 5/325 MG TAB PO PRN (19:28)
[2020-10-02] MEDS ORDERED: HYDROCODONE/APAP 5/325 MG TAB ONE (19:51)
[2020-10-02] MEDS ORDERED: ALBUTEROL 2.5 MG/3 ML NEB SOL ONE (21:01)
[2020-10-03] MEDS ORDERED: GABAPENTIN 100 MG CAP ONE (00:17)
[2020-10-03] MEDS ORDERED: predniSONE 10 MG TAB ONE (00:17)
[2020-10-03] MEDS: IPRATROPIUM BROM 0.5MG/2.5ML NEB SCH ×4 (01:30→22:00)
[2020-10-03] MEDS ORDERED: IPRATROPIUM BROM 0.5MG/2.5ML ONE ×2 (01:52→14:27)
[2020-10-03 02:52] LABS: Absolute Lymphocytes (CBC) 0.6 K/uL (0.7-4.9); Basophils % 1.7 % (0-1.3); Hematocrit 43.5 % (39.6-49.0); Lymphocytes % 3.4 % (15.3-44.8); MPV 8.7 fL (7.6-11.3); RBC Red Blood Cell Count 4.64 M/uL (4.33-5.43)
[2020-10-03 03:33] LABS: Blood Morphology Comment NOT SEEN (NOT SEEN); Platelet Estimate ADEQ
[2020-10-03] MEDS ORDERED: Levofloxacin 750mg IV 750 MG/150 ML BAG IV SCH ×2 (04:00)
[2020-10-03] MEDS: HYDROCODONE/APAP 5/325 MG TAB PO PRN ×3 (04:04→17:30)
[2020-10-03] MEDS ORDERED: HYDROCODONE/APAP 5/325 MG TAB ONE ×2 (04:27→10:58)
[2020-10-03] MEDS: INSULIN -REGULAR HUMAN 50 UNIT/0.5 ML ML SQ SCH ×4 (07:30→21:00)
[2020-10-03] MEDS: predniSONE 10 MG TAB PO SCH ×2 (09:00→21:09)
[2020-10-03] MEDS: levoFLOXacin 500 MG TAB PO SCH (09:00)
[2020-10-03] MEDS: GABAPENTIN 100 MG CAP PO SCH ×3 (09:00→21:09)
[2020-10-03] MEDS: ENOXAPARIN 40 MG/0.4 ML SQ SCH (09:00)
[2020-10-03] MEDS ORDERED: levoFLOXacin 500 MG TAB ONE (10:58)
[2020-10-03] MEDS ORDERED: ENOXAPARIN 40 MG/0.4 ML SQ ONE (10:59)
[2020-10-03] MEDS ORDERED: KETOROLAC 30 MG/ML INJ IV PRN (14:00)
[2020-10-03] MEDS: HYDROMORPHONE HCL 1 MG/ML INJ IV PRN (16:48)
[2020-10-03] MEDS ORDERED: HYDROMORPHONE HCL 2 MG/ML inj ONE (17:04)
[2020-10-03] MEDS ORDERED: HYDROCODONE/APAP 10/325 TAB ONE (17:58)
[2020-10-03] MEDS ORDERED: HOME MED 1 EA UNK (Atenolol [Atenolol] 100 MG Tablet) PO SCH (18:16)
--- NOTE | 2020-10-03 18:32 | RAD REPORT ---
EXAM DESCRIPTION: RAD - Chest Single View - 10/03/2020 5:57 pm CLINICAL HISTORY: tachycardia COMPARISON: Chest Single View dated 09/30/2020; Chest Pa And Lat (2 Views) dated 04/17/2020; Chest Pa And Lat (2 Views) dated 11/14/2019; Chest Pa And Lat (2 Views) dated 11/05/2017; Abdomen Pelvis Wo Co ntrast dated 09/30/2020; Chest For Pe Angio dated 09/30/2020 FINDINGS: Enlarging now moderate right pleural effusion. There is underlying atelectasis and/or pneu monia. Mild cardiomegaly.No acute osseous abnormality. IMPRESSION: Enlarging moderate right pleural effusion with underlying atelectasis and/or infiltrate. Left lung is clear.
[2020-10-03] MEDS ORDERED: FLECAINIDE 100 MG TAB PO SCH (20:00)
[2020-10-03] MEDS ORDERED: ATORVASTATIN 40 MG TAB PO SCH (21:00)
[2020-10-03] MEDS ORDERED: MONTELUKAST 10 MG TAB PO SCH (21:00)
[2020-10-03] MEDS: FLECAINIDE 100 MG TAB PO SCH (21:07)
[2020-10-03] MEDS: PANTOPRAZOLE 40MG TABLET PO SCH (21:08)
[2020-10-03] MEDS: CLOPIDOGREL 75 MG TABLET PO SCH (21:08)
[2020-10-03] MEDS: atenoloL 50 MG TAB PO SCH (21:09)
[2020-10-03] MEDS ORDERED: MELATONIN 5 MG TABLET PO PRN (21:15)
[2020-10-03] MEDS ORDERED: ZOLPIDEM TARTRATE 5 MG TABLET PO PRN (22:27)
[2020-10-04] MEDS: IPRATROPIUM BROM 0.5MG/2.5ML NEB SCH ×3 (02:45→14:11)
[2020-10-04] MEDS: LEVALBUTEROL 1.25 MG/3 ML NEB NEB SCH ×3 (02:45→14:11)
[2020-10-04] MEDS: INSULIN -REGULAR HUMAN 50 UNIT/0.5 ML ML SQ SCH ×3 (07:30→16:30)
[2020-10-04] MEDS ORDERED: HOME MED 1 EA UNK (Fluticasone/Vilanterol [Breo Ellipta 100-25 Mcg Inh] Blst.W.Dev) IH SCH (09:00)
[2020-10-04] MEDS: HYDROCODONE/APAP 5/325 MG TAB PO PRN (09:18)
[2020-10-04] MEDS: atenoloL 50 MG TAB PO SCH (09:19)
[2020-10-04] MEDS: GABAPENTIN 100 MG CAP PO SCH ×2 (09:19→16:28)
[2020-10-04] MEDS: CLOPIDOGREL 75 MG TABLET PO SCH (09:19)
[2020-10-04] MEDS: PANTOPRAZOLE 40MG TABLET PO SCH (09:20)
[2020-10-04] MEDS: ENOXAPARIN 40 MG/0.4 ML SQ SCH (09:21)
[2020-10-04] MEDS: FLECAINIDE 100 MG TAB PO SCH (09:40)
[2020-10-04] MEDS: predniSONE 10 MG TAB PO SCH (09:41)
[2020-10-04 10:23] VITALS: O2SAT 91
[2020-10-04] MEDS ORDERED: CEFEPIME/SWI 1gm 10 ML IV SCH (10:30)
[2020-10-04] MEDS ORDERED: VANCOMYCIN 2.5 GM in NA CHLORIDE 0.9% 500 ML IVPB ONE (11:00)
--- NOTE | 2020-10-04 11:44 | RAD REPORT ---
EXAM DESCRIPTION: US - Chest - 10/04/2020 10:45 am CLINICAL HISTORY: Right parapneumonic effusion COMPARISON: Chest Single View dated 10/03/2020; Abdomen Pelvis Wo Contrast dated 09/30/2020 FINDINGS: Ultrasound of the right hemithorax was performed to evaluate prior to a thoracentesis. The right-sided pleural effusion was complex with multiple internal septations. Therefore, the decision was made to not perform the thoracentesis. IMPRESSION: Complex, septated right pleural effusion. Thoracentesis not performed as the complexity would preclude adequate drainage.
[2020-10-04] MEDS: PIPER/TAZO/NS 3.375gm 3.375 GM/100 ML BAG IVPB SCH ×2 (12:15→16:16)
[2020-10-04] MEDS ORDERED: NA CHLORIDE 0.9% 250 ML ONE (14:35)
[2020-10-04] MEDS: HYDROMORPHONE HCL 1 MG/ML INJ IV PRN (14:36)
--- NOTE | 2020-10-04 14:59 | P.DS ---
Admission Date: 09/30/20 Discharge Date: 10/04/20 Disposition: ROUTINE DISCHARGE Discharge Condition: FAIR Reason for Admission: pleural effusion - Problems (1) Pleural effusion Current Visit: Yes Status: Acute (2) Pneumonia Current Visit: Yes Status: Acute Qualifiers: Pneumonia type: due to unspecified organism Laterality: right Lung location: lower lobe of lung Qualified Code(s): J18.9 - Pneumonia, unspecified organism (3) COPD (chronic obstructive pulmonary disease) Current Visit: Yes Status: Chronic Qualifiers: COPD type: unspecified COPD Qualified Code(s): J44.9 - Chronic obstructive pulmonary disease, unspecified (4) History of rib fracture Current Visit: Yes Status: Acute (5) HTN (hypertension) Current Visit: Yes Status: Chronic Qualifiers: Hypertension type: primary hypertension Qualified Code(s): I10 - Essential (primary) hypertension (6) Chronic atrial fibrillation Current Visit: Yes Status: Acute (7) Coronary artery disease Current Visit: Yes Status: Acute Brief History of Present Illness: 74 yo M with COPD, HLD, HTN, h/o afib presented with right-sided pleuritic chest pain. He denied fever but had an episode of nausea and vomiting. WBC 12.7. Glu 145. BNP 614. CT scan showed R base pleural effusion with early infiltrate. Patient hospitalized for further management. Hospital Course: Patient admitted to the medical floor and started on IV antibiotics, initially IV Levaquin and then transition to IV Zosyn and vancomycin. Patient seen in consultation by pulmonary. Patient has not improved yet with treatment. Repeat chest x-ray showed worsening right-sided pleural effusion. Patient currently on 5 L of oxygen by nasal cannula. Thoracentesis was attempted, but you USG demonstrated complex loculated pleural effusion. Dr. Rooney recommended transfer to a tertiary center to be evaluated by CT surgery for possible VAT. [facility] contacted, I spoke to [facility] CT surgery and Dr. Love hospitalist who have accepted patient for transfer. He is clinically stable for transfer. Vital Signs/Physical Exam: Temp Pulse Resp BP Pulse Ox 97.8 F 103 H 28 H 125/51 L 92 10/04/20 12:00 10/04/20 12:00 10/04/20 12:00 10/04/20 12:00 10/04/20 12:00 General: Alert, In no apparent distress, Oriented x3 HEENT: Mucous membr. moist/pink Neck: JVD not distended Respiratory: Clear to auscultation bilaterally, Normal air movement Cardiovascular: No edema, Regular rate/rhythm, Normal S1 S2 Gastrointestinal: Soft and benign, Non-distended, No tenderness Musculoskeletal: No swelling Integumentary: No rashes Neurological: Normal strength at 5/5 x4 extr Laboratory Data at Discharge: WBC 18.50 K/uL (4.3-10.9) H D 10/03/20 02:21 Hgb 14.5 g/dL (13.6-17.9) 10/03/20 02:21 Hct 43.5 % (39.6-49.0) 10/03/20 02:21 Plt Count 250 K/uL (152-406) 10/03/20 02:21 PT 17.6 SECONDS (9.5-12.5) H 09/30/20 14:31 INR 1.52 09/30/20 14:31 Sodium 133 mmol/L (136-145) L 10/03/20 02:21 Potassium 4.0 mmol/L (3.5-5.1) 10/03/20 02:21 BUN 17 mg/dL (7-18) 10/03/20 02:21 Creatinine 0.97 mg/dL (0.55-1.3) 10/03/20 02:21 Glucose 152 mg/dL (74-106) H 10/03/20 02:21 Phosphorus 2.9 mg/dL (2.5-4.9) 10/01/20 02:08 Magnesium 1.9 mg/dL (1.8-2.4) 10/01/20 02:08 Total Bilirubin 0.5 mg/dL (0.2-1.0) 10/01/20 02:08 AST 11 U/L (15-37) L 10/01/20 02:08 ALT 16 U/L (12-78) 10/01/20 02:08 Alkaline Phosphatase 85 U/L (45-117) 10/01/20 02:08 Home Medications: Atorvastatin Calcium [Lipitor] 40 mg PO BEDTIME 01/29/16 Clopidogrel Bisulfate [Plavix*] 75 mg PO DAILY 01/29/16 Flecainide [Tambocor*] 150 mg PO DAILY 01/29/16 Fluticasone/Vilanterol [Breo Ellipta 100-25 Mcg INH] 1 each IH DAILY 01/29/16 Montelukast [Singulair*] 10 mg PO BEDTIME 01/29/16 Nitroglycerin [Nitrostat*] 0.4 mg SL PRN PRN 01/29/16 Pantoprazole [Protonix Tab*] 40 mg PO DAILY 01/29/16 atenoloL [Atenolol] 100 mg PO DAILY 01/29/16 predniSONE [Prednisone*] 20 mg PO BID #20 tab 10/02/20 Gabapentin [Neurontin*] 100 mg PO TID cap 10/04/20 Hydrocodone 5/APAP 325 [[place] 5/325*] 1 tab PO Q6H PRN tab 10/04/20 Hydromorphone [Dilaudid*] 1 mg IV Q4HP PRN ml 10/04/20 Insulin -Regular Human [Novolin -R*] See Protocol SQ ACHS ml 10/04/20 Ipratropium Neb [Atrovent*] 0.5 mg NEB [id number] amp 10/04/20 Levalbuterol [Xopenex*] 1.25 mg NEB [id number] vial 10/04/20 New Medications: predniSONE [Prednisone*] 20 mg PO BID #20 tab Followup: Prince Bourne DO, DO [Primary Care Provider] - Time spent managing pt's care (in minutes): 38
[2020-10-04] MEDS ORDERED: FUROSEMIDE 40 MG/4 ML VIAL IV SCH (17:00)
[2020-10-04 18:00] VITALS: BP 128/75; TEMP 97.1
[2020-10-04] MEDS ORDERED: CEFEPIME 1 GM/VIAL IV SCH (21:00)
[2020-10-05] MEDS ORDERED: VANCOMYCIN 2 GM in NA CHLORIDE 0.9% 500 ML IVPB SCH (05:00)
== END 2020-10-04 18:30 | disposition short-term general hospital (02) | DRG 186 ==
LOC: ER 12:58 → ERHOLD 21:49 → 2ND 10-03 18:01
PROVIDERS: ADMIT Internal Medicine; ATTEND Internal Medicine
DX: J90 Pleural effusion, not elsewhere classified (principal); J15.9 Unspecified bacterial pneumonia; J44.0 Chronic obstructive pulmonary disease with (acute) lower respiratory infection; J98.11 Atelectasis; J96.11 Chronic respiratory failure with hypoxia; I48.20 Chronic atrial fibrillation, unspecified; I10 Essential (primary) hypertension; E78.5 Hyperlipidemia, unspecified; I25.10 Atherosclerotic heart disease of native coronary artery without angina pectoris; Z95.5 Presence of coronary angioplasty implant and graft; Z20.822 Contact with and (suspected) exposure to COVID-19
CPT/HCPCS: 0240U; 36415; 71045; 71275; 74176; 76604; 80048; 80053; 80076; 81003; 82947; 83036; 83735; 83880; 84100; 84484; 85025; 85610; 93005; 94010; 94640; 94760; 96361; 96365; 96375; 99285; J0456; J0692; J1170; J1650; J2405; J2543; J3010; J3360; J3370; J7040; J7050; J7512; Q9967